=== PATIENT | male | born 1965 | race Caucasian/White ===

== ENCOUNTER 2021-09-16 11:32 | Inpatient (IN) | payer MEDICARE, MEDICAID ==
[~2021-09-16] VITALS: Ht 152.4 cm; Wt 53.4 kg
[~2021-09-16 11:32] MED LIST: DIVA-80 PO; FLUO-191 PO; HYDR25TA2 PO; LEVO-72 PO; METO25XL PO; OLAN10TA74 PO
[2021-09-16 12:56] LABS: COVID AG,FIA SOURCE NASOPHARYNGEAL
[2021-09-16 13:04] LABS: AMPHET/METH SCREEN,URINE POSITIVE (NEGATIVE); BARBITURATE SCREEN, URINE NEGATIVE (NEGATIVE); BENZODIAZEPINES SCREEN,URINE NEGATIVE (NEGATIVE); CANNABINOID SCREEN,URINE NEGATIVE (NEGATIVE); COCAINE SCREEN,URINE NEGATIVE (NEGATIVE); METHADONE SCREEN, URINE NEGATIVE (NEGATIVE); OPIATE SCREEN,URINE NEGATIVE (NEGATIVE)
[2021-09-16 13:09] LABS: PHENCYCLIDINE SCREEN,URINE NEGATIVE (NEGATIVE)
[2021-09-16] MEDS ORDERED: ZOLPIDEM TARTRATE 10 MG TABLET PO PRN (16:00)
[2021-09-16 18:57] VITALS: BP 136/80
[2021-09-17] MEDS ORDERED: OMEPRAZOLE 20 MG CAPSULE PO PRN (07:45)
[2021-09-17] MEDS ORDERED: CloNIDine HCL 0.1 MG TABLET PO PRN (07:45)
[2021-09-17] MEDS ORDERED: DOCUSATE SODIUM 100 MG CAPSULE PO PRN (07:45)
[2021-09-17] MEDS ORDERED: PETROLATUM,WHITE 28 GM JELLY TP PRN (07:45)
[2021-09-17] MEDS ORDERED: MAGNESIUM HYDROXIDE SUSPENSION 30 ML UDCUP PO PRN (07:45)
[2021-09-17] MEDS ORDERED: ACETAMINOPHEN 325 MG TABLET PO PRN (07:45)
[2021-09-17] MEDS ORDERED: BACITRACIN 28 GM OINTMENT TP PRN (07:45)
[2021-09-17] MEDS ORDERED: BENZOCAINE/MENTHOL LOZENGE PO PRN (07:45)
[2021-09-17] MEDS ORDERED: ALBUTEROL SULFATE HFA 90 MCG/PUFF 8 GM INHALER IH PRN (07:45)
[2021-09-17] MEDS ORDERED: LOPERAMIDE HCL 2 MG CAPSULE PO PRN (07:45)
[2021-09-17] MEDS ORDERED: ONDANSETRON HCL 4 MG TABLET PO PRN (07:45)
[2021-09-17] MEDS ORDERED: IBUPROFEN 600 MG TABLET PO PRN (07:45)
[2021-09-17] MEDS ORDERED: MAG HYDROX/AL HYDROX/SIMETH ES 30 ML SUSPENSION UDCUP PO PRN (07:45)
[2021-09-17] MEDS: HYDROCHLOROTHIAZIDE 25 MG TABLET PO SCH (08:00)
[2021-09-17] MEDS: METOPROLOL SUCCINATE 25 MG ER TABLET PO SCH (08:00)
[2021-09-17 08:14] VITALS: BP 127/68
[2021-09-17 16:16] VITALS: BP 148/90
[2021-09-17] MEDS ORDERED: INFLUENZA VIRUS VACCINE QVS 2021-22 (6MO+)/PF 60 MCG/0.5 ML SYRINGE IM. ONE (19:00)
[2021-09-17] MEDS: LORazepam 2 MG TABLET PO PRN (19:03)
[2021-09-17] MEDS: HALOPERIDOL 5 MG TABLET PO PRN (19:03)
[2021-09-17] MEDS: OLANZapine 7.5 MG TABLET PO SCH (20:08)
[2021-09-18 08:10] VITALS: BP 94/71
[2021-09-18] MEDS: METOPROLOL SUCCINATE 25 MG ER TABLET PO SCH (10:51)
[2021-09-18] MEDS: HYDROCHLOROTHIAZIDE 25 MG TABLET PO SCH (10:52)
[2021-09-18] MEDS: MULTIVITAMINS WITH MINERALS, THERAPEUTIC TABLET PO SCH (10:52)
[2021-09-18 16:13] VITALS: BP 129/84
[2021-09-18] MEDS: HALOPERIDOL 5 MG TABLET PO PRN (16:13)
[2021-09-18] MEDS: LORazepam 2 MG TABLET PO PRN (16:13)
[2021-09-18] MEDS: OLANZapine 7.5 MG TABLET PO SCH (20:15)
[2021-09-19 09:26] VITALS: BP 129/58
[2021-09-19] MEDS: HYDROCHLOROTHIAZIDE 25 MG TABLET PO SCH (09:33)
[2021-09-19] MEDS: METOPROLOL SUCCINATE 25 MG ER TABLET PO SCH (09:33)
[2021-09-19] MEDS: MULTIVITAMINS WITH MINERALS, THERAPEUTIC TABLET PO SCH (09:33)
[2021-09-19 16:35] VITALS: BP 102/66
[2021-09-19] MEDS: OLANZapine 7.5 MG TABLET PO SCH (20:12)
[2021-09-20 08:48] VITALS: BP 113/86
[2021-09-20] MEDS: METOPROLOL SUCCINATE 25 MG ER TABLET PO SCH (09:39)
[2021-09-20] MEDS: HYDROCHLOROTHIAZIDE 25 MG TABLET PO SCH (09:40)
[2021-09-20] MEDS: MULTIVITAMINS WITH MINERALS, THERAPEUTIC TABLET PO SCH (09:40)
[2021-09-20] MEDS: HALOPERIDOL 5 MG TABLET PO PRN (16:34)
[2021-09-20 17:00] VITALS: BP 112/69
[2021-09-20] MEDS: LORazepam 2 MG TABLET PO PRN (19:21)
[2021-09-20] MEDS: OLANZapine 7.5 MG TABLET PO SCH (21:11)
[2021-09-21] MEDS: METOPROLOL SUCCINATE 25 MG ER TABLET PO SCH (08:17)
[2021-09-21] MEDS: HYDROCHLOROTHIAZIDE 25 MG TABLET PO SCH (08:17)
[2021-09-21] MEDS: MULTIVITAMINS WITH MINERALS, THERAPEUTIC TABLET PO SCH (08:17)
[2021-09-21] MEDS: HALOPERIDOL 5 MG TABLET PO PRN ×3 (08:34→19:37)
[2021-09-21 08:37] VITALS: BP 119/80
[2021-09-21 16:07] VITALS: BP 131/78
[2021-09-21] MEDS: LORazepam 2 MG TABLET PO PRN (19:37)
[2021-09-21] MEDS: OLANZapine 7.5 MG TABLET PO SCH (20:35)
[2021-09-22] MEDS: METOPROLOL SUCCINATE 25 MG ER TABLET PO SCH (09:47)
[2021-09-22] MEDS: MULTIVITAMINS WITH MINERALS, THERAPEUTIC TABLET PO SCH (09:48)
[2021-09-22] MEDS: HYDROCHLOROTHIAZIDE 25 MG TABLET PO SCH (09:48)
[2021-09-22 14:09] LABS: COVID AG,FIA SOURCE NASOPHARYNGEAL
[2021-09-22 16:42] VITALS: BP 89/59
[2021-09-22 18:23] VITALS: BP 99/72
[2021-09-22] MEDS: OLANZapine 7.5 MG TABLET PO SCH (20:06)
[2021-09-23] MEDS: MULTIVITAMINS WITH MINERALS, THERAPEUTIC TABLET PO SCH (07:43)
[2021-09-23] MEDS: METOPROLOL SUCCINATE 25 MG ER TABLET PO SCH (07:44)
[2021-09-23] MEDS: HYDROCHLOROTHIAZIDE 25 MG TABLET PO SCH (07:44)
[2021-09-23 09:49] VITALS: BP 111/72
[2021-09-23] MEDS: HALOPERIDOL 5 MG TABLET PO PRN ×2 (13:56→17:59)
[2021-09-23] MEDS: LORazepam 2 MG TABLET PO PRN ×2 (13:56→17:59)
[2021-09-23 16:35] VITALS: BP 125/72
[2021-09-23] MEDS: OLANZapine 10 MG TABLET PO SCH (20:23)
[2021-09-24 08:00] VITALS: BP 93/66
[2021-09-24] MEDS: METOPROLOL SUCCINATE 25 MG ER TABLET PO SCH (09:36)
[2021-09-24] MEDS: HYDROCHLOROTHIAZIDE 25 MG TABLET PO SCH (09:36)
[2021-09-24] MEDS: MULTIVITAMINS WITH MINERALS, THERAPEUTIC TABLET PO SCH (09:36)
[2021-09-24 17:07] VITALS: BP 101/67
[2021-09-24] MEDS: OLANZapine 10 MG TABLET PO SCH (20:03)
[2021-09-25 08:00] VITALS: BP 132/85
[2021-09-25] MEDS: MULTIVITAMINS WITH IRON TABLET PO SCH (09:13)
[2021-09-25] MEDS: METOPROLOL SUCCINATE 25 MG ER TABLET PO SCH (09:13)
[2021-09-25] MEDS: HYDROCHLOROTHIAZIDE 25 MG TABLET PO SCH (09:13)
[2021-09-25] MEDS: HALOPERIDOL 5 MG TABLET PO PRN ×2 (09:17→19:50)
[2021-09-25 16:09] VITALS: BP 115/75
[2021-09-25] MEDS: LORazepam 2 MG TABLET PO PRN (19:50)
[2021-09-25] MEDS: OLANZapine 10 MG TABLET PO SCH (20:07)
[2021-09-26 08:30] VITALS: BP 101/69
[2021-09-26] MEDS: HYDROCHLOROTHIAZIDE 25 MG TABLET PO SCH (08:54)
[2021-09-26] MEDS: MULTIVITAMINS WITH IRON TABLET PO SCH (08:54)
[2021-09-26] MEDS: METOPROLOL SUCCINATE 25 MG ER TABLET PO SCH (08:54)
[2021-09-26 16:08] VITALS: BP 118/75
[2021-09-26] MEDS: LORazepam 2 MG TABLET PO PRN (17:57)
[2021-09-26] MEDS: HALOPERIDOL 5 MG TABLET PO PRN (17:57)
[2021-09-26] MEDS: OLANZapine 10 MG TABLET PO SCH (20:03)
[2021-09-27 08:06] VITALS: BP 96/68
[2021-09-27] MEDS: METOPROLOL SUCCINATE 25 MG ER TABLET PO SCH (09:00)
[2021-09-27] MEDS: HYDROCHLOROTHIAZIDE 25 MG TABLET PO SCH (09:00)
[2021-09-27] MEDS: MULTIVITAMINS WITH IRON TABLET PO SCH (11:36)
[2021-09-27 13:00] VITALS: BP 101/73
[2021-09-27] MEDS: LORazepam 2 MG TABLET PO PRN ×2 (13:06→20:15)
[2021-09-27] MEDS: HALOPERIDOL 5 MG TABLET PO PRN ×2 (13:06→20:15)
[2021-09-27 16:08] VITALS: BP 118/78
[2021-09-27] MEDS: OLANZapine 10 MG TABLET PO SCH (20:35)
[2021-09-28 08:15] VITALS: BP 126/100
[2021-09-28] MEDS: METOPROLOL SUCCINATE 25 MG ER TABLET PO SCH (10:10)
[2021-09-28] MEDS: MULTIVITAMINS WITH IRON TABLET PO SCH (10:11)
[2021-09-28] MEDS: HYDROCHLOROTHIAZIDE 25 MG TABLET PO SCH (10:11)
[2021-09-28] MEDS: HALOPERIDOL 5 MG TABLET PO PRN ×2 (14:38→18:38)
[2021-09-28 16:52] VITALS: BP 100/60
[2021-09-28] MEDS: LORazepam 2 MG TABLET PO PRN (18:39)
[2021-09-28] MEDS: OLANZapine 10 MG TABLET PO SCH (20:49)
[2021-09-29 08:00] VITALS: BP 100/71
[2021-09-29] MEDS: MULTIVITAMINS WITH IRON TABLET PO SCH (09:37)
[2021-09-29] MEDS: HYDROCHLOROTHIAZIDE 25 MG TABLET PO SCH (09:38)
[2021-09-29] MEDS: METOPROLOL SUCCINATE 25 MG ER TABLET PO SCH (09:38)
[2021-09-29 13:27] LABS: COVID AG,FIA SOURCE NASOPHARYNGEAL
[2021-09-29] MEDS: NICOTINE 21 MG/24 HOUR PATCH TD SCH (14:53)
[2021-09-29] MEDS: LORazepam 2 MG TABLET PO PRN (16:16)
[2021-09-29] MEDS: HALOPERIDOL 5 MG TABLET PO PRN (16:17)
[2021-09-29] MEDS: OLANZapine 10 MG TABLET PO SCH (20:42)
[2021-09-30] MEDS: HYDROCHLOROTHIAZIDE 25 MG TABLET PO SCH (08:17)
[2021-09-30] MEDS: NICOTINE 21 MG/24 HOUR PATCH TD SCH (08:17)
[2021-09-30] MEDS: METOPROLOL SUCCINATE 25 MG ER TABLET PO SCH (08:17)
[2021-09-30] MEDS: MULTIVITAMINS WITH IRON TABLET PO SCH (08:17)
[2021-09-30 08:30] VITALS: BP 103/81
[2021-09-30] MEDS: LORazepam 2 MG TABLET PO PRN ×2 (13:43→18:30)
[2021-09-30] MEDS: HALOPERIDOL 5 MG TABLET PO PRN ×2 (13:48→18:30)
[2021-09-30 16:48] VITALS: BP 123/76
[2021-09-30] MEDS: OLANZapine 10 MG TABLET PO SCH (20:04)
[2021-10-01 08:00] VITALS: BP 99/66
[2021-10-01] MEDS: MULTIVITAMINS WITH IRON TABLET PO SCH (08:13)
[2021-10-01] MEDS: NICOTINE 21 MG/24 HOUR PATCH TD SCH (08:13)
[2021-10-01] MEDS: METOPROLOL SUCCINATE 25 MG ER TABLET PO SCH (08:15)
[2021-10-01] MEDS: HYDROCHLOROTHIAZIDE 25 MG TABLET PO SCH (08:16)
[2021-10-01] MEDS: HALOPERIDOL 5 MG TABLET PO PRN (08:18)
[2021-10-01] MEDS: LORazepam 2 MG TABLET PO PRN (08:18)
[2021-10-01] MEDS ORDERED: OLAN10TA74 PO (12:08)
[2021-10-01] MEDS ORDERED: METO25XL PO (12:10)
[2021-10-01] MEDS ORDERED: HYDR25TA2 PO (12:11)
== END 2021-10-01 14:35 | disposition home or self-care (01) | DRG 885 ==
LOC: EMS 11:36 → 3EC 18:08
PROVIDERS: ADMIT Psychiatry & Neurology Psychiatry; ATTEND Psychiatry & Neurology Psychiatry
DX: F25.9 Schizoaffective disorder, unspecified (principal); R45.851 Suicidal ideations; D64.9 Anemia, unspecified; Z20.822 Contact with and (suspected) exposure to COVID-19; F15.10 Other stimulant abuse, uncomplicated; F32.A Depression, unspecified; F41.9 Anxiety disorder, unspecified; G47.00 Insomnia, unspecified; I10 Essential (primary) hypertension; K59.00 Constipation, unspecified; F17.210 Nicotine dependence, cigarettes, uncomplicated; Z28.21 Immunization not carried out because of patient refusal; Z88.8 Allergy status to other drugs, medicaments and biological substances; Z79.899 Other long term (current) drug therapy; Z71.51 Drug abuse counseling and surveillance of drug abuser; Z71.6 Tobacco abuse counseling
CPT/HCPCS: 99285

== ENCOUNTER 2022-02-11 16:25 | Inpatient (IN) | payer MEDICARE, MEDICAID ==
[~2022-02-11] VITALS: Ht 152.4 cm; Wt 51.7 kg
[~2022-02-11 16:25] MED LIST changes: -DIVA-80 PO; -FLUO-191 PO; -LEVO-72 PO
[2022-02-11] MEDS: ZOLPIDEM TARTRATE 10 MG TABLET PO PRN (21:35)
[2022-02-12 06:26] VITALS: BP 112/83
[2022-02-12 08:17] VITALS: BP 114/77
[2022-02-12] MEDS ORDERED: MAGNESIUM HYDROXIDE SUSPENSION 30 ML UDCUP PO PRN (13:30)
[2022-02-12] MEDS ORDERED: ONDANSETRON HCL 4 MG TABLET PO PRN (13:30)
[2022-02-12] MEDS ORDERED: CloNIDine HCL 0.1 MG TABLET PO PRN (13:30)
[2022-02-12] MEDS ORDERED: PETROLATUM,WHITE 28 GM JELLY TP PRN (13:30)
[2022-02-12] MEDS ORDERED: DOCUSATE SODIUM 100 MG CAPSULE PO PRN (13:30)
[2022-02-12] MEDS ORDERED: LOPERAMIDE HCL 2 MG CAPSULE PO PRN (13:30)
[2022-02-12] MEDS ORDERED: GuaiFENesin/D-METHORPHAN [SUGAR-FREE] 200-20MG/10 ML SYRUP UDCUP PO PRN (13:30)
[2022-02-12] MEDS ORDERED: MAG HYDROX/AL HYDROX/SIMETH ES 30 ML SUSPENSION UDCUP PO PRN (13:30)
[2022-02-12] MEDS ORDERED: ALBUTEROL SULFATE HFA 90 MCG/PUFF 8 GM INHALER IH PRN (13:30)
[2022-02-12 16:09] VITALS: BP 109/68
[2022-02-12] MEDS: HALOPERIDOL 5 MG TABLET PO PRN (18:24)
[2022-02-12] MEDS: OLANZapine 10 MG TABLET PO SCH (20:28)
[2022-02-13 01:19] VITALS: BP 102/73
[2022-02-13] MEDS: HYDROCHLOROTHIAZIDE 25 MG TABLET PO SCH (08:21)
[2022-02-13] MEDS: METOPROLOL SUCCINATE 25 MG ER TABLET PO SCH (08:21)
[2022-02-13 08:33] VITALS: BP 106/61
[2022-02-13] MEDS: HALOPERIDOL 5 MG TABLET PO PRN (15:47)
[2022-02-13 16:02] VITALS: BP 116/89
[2022-02-13] MEDS: OLANZapine 10 MG TABLET PO SCH (20:28)
[2022-02-14 01:23] VITALS: BP 100/61
[2022-02-14 07:23] LABS: APPEARANCE,URINE CLEAR (CLEAR); BILIRUBIN,URINE NEGATIVE (NEGATIVE); GLUCOSE, URINE (UA) NEGATIVE (NEGATIVE); KETONES,URINE NEGATIVE (NEGATIVE); LEUKOCYTE ESTERASE ,URINE NEGATIVE (NEGATIVE); NITRATE,URINE NEGATIVE (NEGATIVE); OCCULT BLOOD,URINE NEGATIVE (NEGATIVE); PROTEIN,URINE NEGATIVE (NEGATIVE); SPECIFIC GRAVITIY, URINE 1.014 (1.003-1.030); UROBILINOGEN,URINE <=1.0 mg/dL (<=1.0)
[2022-02-14 07:31] LABS: AMPHET/METH SCREEN,URINE NEGATIVE (NEGATIVE); BARBITURATE SCREEN, URINE NEGATIVE (NEGATIVE); BENZODIAZEPINES SCREEN,URINE NEGATIVE (NEGATIVE); CANNABINOID SCREEN,URINE NEGATIVE (NEGATIVE); COCAINE SCREEN,URINE NEGATIVE (NEGATIVE); METHADONE SCREEN, URINE NEGATIVE (NEGATIVE); OPIATE SCREEN,URINE NEGATIVE (NEGATIVE); PHENCYCLIDINE SCREEN,URINE NEGATIVE (NEGATIVE)
[2022-02-14 08:26] VITALS: BP 100/83
[2022-02-14] MEDS: HYDROCHLOROTHIAZIDE 25 MG TABLET PO SCH (08:30)
[2022-02-14] MEDS: METOPROLOL SUCCINATE 25 MG ER TABLET PO SCH (08:31)
[2022-02-14 16:06] VITALS: BP 106/82
[2022-02-14] MEDS: OLANZapine 10 MG TABLET PO SCH (20:05)
[2022-02-15 00:35] VITALS: BP 102/71
[2022-02-15 08:00] VITALS: BP 110/74
[2022-02-15] MEDS: METOPROLOL SUCCINATE 25 MG ER TABLET PO SCH (08:06)
[2022-02-15] MEDS: HYDROCHLOROTHIAZIDE 25 MG TABLET PO SCH (08:06)
[2022-02-15 16:47] VITALS: BP 104/86
[2022-02-15] MEDS: OLANZapine 10 MG TABLET PO SCH (20:16)
[2022-02-16 00:03] VITALS: BP 100/64
[2022-02-16] MEDS: METOPROLOL SUCCINATE 25 MG ER TABLET PO SCH (08:03)
[2022-02-16] MEDS: HYDROCHLOROTHIAZIDE 25 MG TABLET PO SCH (08:03)
[2022-02-16 08:04] VITALS: BP 104/67
[2022-02-16 16:06] VITALS: BP 94/70
[2022-02-16] MEDS: OLANZapine 10 MG TABLET PO SCH (20:27)
[2022-02-16] MEDS: ZOLPIDEM TARTRATE 10 MG TABLET PO PRN (21:56)
[2022-02-17 01:27] VITALS: BP 103/66
[2022-02-17 08:03] VITALS: BP 102/63
[2022-02-17] MEDS: HYDROCHLOROTHIAZIDE 25 MG TABLET PO SCH (08:08)
[2022-02-17] MEDS: METOPROLOL SUCCINATE 25 MG ER TABLET PO SCH (08:08)
[2022-02-17 16:05] VITALS: BP 111/78
[2022-02-17] MEDS: OLANZapine 10 MG TABLET PO SCH (20:49)
[2022-02-17] MEDS: ZOLPIDEM TARTRATE 10 MG TABLET PO PRN (21:48)
[2022-02-18 00:24] VITALS: BP 108/65
[2022-02-18] MEDS: HYDROCHLOROTHIAZIDE 25 MG TABLET PO SCH (08:31)
[2022-02-18] MEDS: METOPROLOL SUCCINATE 25 MG ER TABLET PO SCH (08:32)
[2022-02-18] MEDS: MULTIVITAMINS WITH IRON TABLET PO SCH (08:32)
[2022-02-18] MEDS: THIAMINE 100 MG TABLET PO SCH (08:32)
[2022-02-18 08:49] VITALS: BP 109/65
[2022-02-18 11:26] LABS: GLUCOMETER DEV NAME(LOC) POC.BV
[2022-02-18 16:01] VITALS: BP 99/61
[2022-02-18] MEDS: LORazepam 2 MG TABLET PO PRN (16:20)
[2022-02-18] MEDS: OLANZapine 7.5 MG TABLET PO SCH (20:27)
[2022-02-19 08:00] VITALS: BP 103/75
[2022-02-19 09:20] VITALS: BP 110/68
[2022-02-19] MEDS: THIAMINE 100 MG TABLET PO SCH (09:24)
[2022-02-19] MEDS: MULTIVITAMINS WITH IRON TABLET PO SCH (09:24)
[2022-02-19] MEDS: METOPROLOL SUCCINATE 25 MG ER TABLET PO SCH (09:24)
[2022-02-19] MEDS: HYDROCHLOROTHIAZIDE 25 MG TABLET PO SCH (09:24)
[2022-02-19 16:11] VITALS: BP 96/68
[2022-02-19] MEDS: OLANZapine 7.5 MG TABLET PO SCH (20:40)
[2022-02-20 01:00] VITALS: BP 102/66
[2022-02-20] MEDS: MULTIVITAMINS WITH IRON TABLET PO SCH (08:18)
[2022-02-20] MEDS: METOPROLOL SUCCINATE 25 MG ER TABLET PO SCH (08:18)
[2022-02-20] MEDS: THIAMINE 100 MG TABLET PO SCH (08:18)
[2022-02-20] MEDS: HYDROCHLOROTHIAZIDE 25 MG TABLET PO SCH (08:18)
[2022-02-20 08:22] VITALS: BP 104/78
[2022-02-20 16:07] VITALS: BP 102/65
[2022-02-20] MEDS: OLANZapine 7.5 MG TABLET PO SCH (20:14)
[2022-02-20] MEDS: ZOLPIDEM TARTRATE 10 MG TABLET PO PRN (20:16)
[2022-02-21 08:30] VITALS: BP 95/60
[2022-02-21] MEDS: THIAMINE 100 MG TABLET PO SCH (08:52)
[2022-02-21] MEDS: MULTIVITAMINS WITH IRON TABLET PO SCH (08:52)
[2022-02-21] MEDS: METOPROLOL SUCCINATE 25 MG ER TABLET PO SCH (09:00)
[2022-02-21] MEDS: HYDROCHLOROTHIAZIDE 25 MG TABLET PO SCH (09:00)
[2022-02-21 16:12] VITALS: BP 103/62
[2022-02-21] MEDS: BACITRACIN 28 GM OINTMENT TP SCH (17:19)
[2022-02-21] MEDS: OLANZapine 10 MG TABLET PO SCH (20:21)
[2022-02-22 00:30] VITALS: BP 108/65
[2022-02-22 08:05] VITALS: BP 100/67
[2022-02-22] MEDS: HYDROCHLOROTHIAZIDE 25 MG TABLET PO SCH (08:35)
[2022-02-22] MEDS: METOPROLOL SUCCINATE 25 MG ER TABLET PO SCH (08:35)
[2022-02-22] MEDS: MULTIVITAMINS WITH IRON TABLET PO SCH (08:35)
[2022-02-22] MEDS: THIAMINE 100 MG TABLET PO SCH (08:35)
[2022-02-22] MEDS: BACITRACIN 28 GM OINTMENT TP SCH ×2 (09:00→16:44)
[2022-02-22 16:13] VITALS: BP 105/82
[2022-02-22] MEDS: NICOTINE 14 MG/24 HOUR PATCH TD PRN (19:47)
[2022-02-22] MEDS: OLANZapine 10 MG TABLET PO SCH (20:27)
[2022-02-23 00:36] VITALS: BP 108/68
[2022-02-23 08:49] VITALS: BP 101/61
[2022-02-23] MEDS: BACITRACIN 28 GM OINTMENT TP SCH ×2 (09:08→16:44)
[2022-02-23] MEDS: MULTIVITAMINS WITH IRON TABLET PO SCH (09:11)
[2022-02-23] MEDS: THIAMINE 100 MG TABLET PO SCH (09:11)
[2022-02-23] MEDS: METOPROLOL SUCCINATE 25 MG ER TABLET PO SCH (09:11)
[2022-02-23] MEDS: HYDROCHLOROTHIAZIDE 25 MG TABLET PO SCH (09:11)
[2022-02-23 16:35] VITALS: BP 126/72
[2022-02-23] MEDS: LORazepam 2 MG TABLET PO PRN (18:10)
[2022-02-23] MEDS: OLANZapine 10 MG TABLET PO SCH (20:32)
[2022-02-24 00:43] VITALS: BP 119/73
[2022-02-24 08:31] VITALS: BP 110/68
[2022-02-24] MEDS: BACITRACIN 28 GM OINTMENT TP SCH ×2 (09:05→16:14)
[2022-02-24] MEDS: HYDROCHLOROTHIAZIDE 25 MG TABLET PO SCH (09:05)
[2022-02-24] MEDS: MULTIVITAMINS WITH IRON TABLET PO SCH (09:05)
[2022-02-24] MEDS: METOPROLOL SUCCINATE 25 MG ER TABLET PO SCH (09:05)
[2022-02-24] MEDS: THIAMINE 100 MG TABLET PO SCH (09:05)
[2022-02-24 16:09] VITALS: BP 109/75
[2022-02-24] MEDS: LORazepam 2 MG TABLET PO PRN (19:10)
[2022-02-24] MEDS: OLANZapine 10 MG TABLET PO SCH (20:17)
[2022-02-25 00:57] VITALS: BP 112/72
[2022-02-25 09:06] LABS: GLUCOMETER DEV NAME(LOC) POC.BV
[2022-02-25 09:48] VITALS: BP 108/68
[2022-02-25] MEDS: METOPROLOL SUCCINATE 25 MG ER TABLET PO SCH (10:19)
[2022-02-25] MEDS: HYDROCHLOROTHIAZIDE 25 MG TABLET PO SCH (10:19)
[2022-02-25] MEDS: BACITRACIN 28 GM OINTMENT TP SCH ×2 (10:19→16:21)
[2022-02-25] MEDS: MULTIVITAMINS WITH IRON TABLET PO SCH (10:19)
[2022-02-25] MEDS: THIAMINE 100 MG TABLET PO SCH (10:19)
[2022-02-25 16:26] VITALS: BP 98/67
[2022-02-25] MEDS: NICOTINE 14 MG/24 HOUR PATCH TD PRN (17:49)
[2022-02-25] MEDS: OLANZapine 10 MG TABLET PO SCH (20:26)
[2022-02-25] MEDS: LORazepam 2 MG TABLET PO PRN (22:40)
[2022-02-26 02:04] VITALS: BP 101/65
[2022-02-26] MEDS: THIAMINE 100 MG TABLET PO SCH (08:40)
[2022-02-26] MEDS: MULTIVITAMINS WITH IRON TABLET PO SCH (08:40)
[2022-02-26] MEDS: BACITRACIN 28 GM OINTMENT TP SCH ×2 (08:43→16:35)
[2022-02-26] MEDS: HYDROCHLOROTHIAZIDE 25 MG TABLET PO SCH (08:43)
[2022-02-26] MEDS: METOPROLOL SUCCINATE 25 MG ER TABLET PO SCH (08:43)
[2022-02-26 09:19] VITALS: BP 109/60
[2022-02-26 16:22] VITALS: BP 106/70
[2022-02-26] MEDS: OLANZapine 10 MG TABLET PO SCH (20:35)
[2022-02-26] MEDS: ZOLPIDEM TARTRATE 10 MG TABLET PO PRN (20:35)
[2022-02-27 01:28] VITALS: BP 103/62
[2022-02-27 08:22] VITALS: BP 108/64
[2022-02-27] MEDS: THIAMINE 100 MG TABLET PO SCH (08:24)
[2022-02-27] MEDS: MULTIVITAMINS WITH IRON TABLET PO SCH (08:24)
[2022-02-27] MEDS: METOPROLOL SUCCINATE 25 MG ER TABLET PO SCH (08:24)
[2022-02-27] MEDS: HYDROCHLOROTHIAZIDE 25 MG TABLET PO SCH (08:24)
[2022-02-27] MEDS: BACITRACIN 28 GM OINTMENT TP SCH ×2 (08:29→16:57)
[2022-02-27 16:17] VITALS: BP 106/68
[2022-02-27] MEDS: OLANZapine 10 MG TABLET PO SCH (20:06)
[2022-02-27] MEDS: NICOTINE 14 MG/24 HOUR PATCH TD PRN (20:09)
[2022-02-28 06:02] VITALS: BP 109/67
[2022-02-28] MEDS: THIAMINE 100 MG TABLET PO SCH (08:07)
[2022-02-28] MEDS: MULTIVITAMINS WITH IRON TABLET PO SCH (08:07)
[2022-02-28] MEDS: METOPROLOL SUCCINATE 25 MG ER TABLET PO SCH (08:11)
[2022-02-28] MEDS: HYDROCHLOROTHIAZIDE 25 MG TABLET PO SCH (08:11)
[2022-02-28] MEDS: BACITRACIN 28 GM OINTMENT TP SCH ×2 (08:12→16:41)
[2022-02-28 08:14] VITALS: BP 101/63
[2022-02-28] MEDS: HALOPERIDOL 5 MG TABLET PO PRN (08:20)
[2022-02-28 16:18] VITALS: BP 99/73
[2022-02-28] MEDS: NICOTINE 14 MG/24 HOUR PATCH TD PRN (16:41)
[2022-02-28] MEDS: OLANZapine 10 MG TABLET PO SCH (20:03)
[2022-02-28] MEDS: LORazepam 2 MG TABLET PO PRN (20:03)
[2022-03-01 06:22] VITALS: BP 104/60
[2022-03-01] MEDS: THIAMINE 100 MG TABLET PO SCH (09:03)
[2022-03-01] MEDS: METOPROLOL SUCCINATE 25 MG ER TABLET PO SCH (09:03)
[2022-03-01] MEDS: HYDROCHLOROTHIAZIDE 25 MG TABLET PO SCH (09:03)
[2022-03-01] MEDS: MULTIVITAMINS WITH IRON TABLET PO SCH (09:03)
[2022-03-01] MEDS: BACITRACIN 28 GM OINTMENT TP SCH ×2 (09:04→16:15)
[2022-03-01 09:08] VITALS: BP 101/73
[2022-03-01 16:43] VITALS: BP 108/67
[2022-03-01] MEDS: OLANZapine 10 MG TABLET PO SCH (20:11)
[2022-03-02 01:45] VITALS: BP 100/71
[2022-03-02] MEDS: THIAMINE 100 MG TABLET PO SCH (09:35)
[2022-03-02] MEDS: MULTIVITAMINS WITH IRON TABLET PO SCH (09:35)
[2022-03-02] MEDS: METOPROLOL SUCCINATE 25 MG ER TABLET PO SCH (09:36)
[2022-03-02] MEDS: HYDROCHLOROTHIAZIDE 25 MG TABLET PO SCH (09:36)
[2022-03-02] MEDS: BACITRACIN 28 GM OINTMENT TP SCH ×2 (09:36→16:20)
[2022-03-02 10:33] VITALS: BP 13/78
[2022-03-02 18:00] VITALS: BP 106/81
[2022-03-02] MEDS: OLANZapine 10 MG TABLET PO SCH (20:18)
[2022-03-02 20:22] VITALS: BP 110/76
[2022-03-02] MEDS: IBUPROFEN 400 MG TABLET PO PRN (20:22)
[2022-03-02] MEDS: NICOTINE 14 MG/24 HOUR PATCH TD PRN (20:26)
[2022-03-03 06:21] VITALS: BP 112/78
[2022-03-03 08:52] VITALS: BP 111/78
[2022-03-03] MEDS: THIAMINE 100 MG TABLET PO SCH (08:58)
[2022-03-03] MEDS: MULTIVITAMINS WITH IRON TABLET PO SCH (08:58)
[2022-03-03] MEDS: HYDROCHLOROTHIAZIDE 25 MG TABLET PO SCH (08:58)
[2022-03-03] MEDS: METOPROLOL SUCCINATE 25 MG ER TABLET PO SCH (08:58)
[2022-03-03] MEDS: BACITRACIN 28 GM OINTMENT TP SCH ×2 (08:59→17:26)
[2022-03-03] MEDS: LORazepam 2 MG TABLET PO PRN (12:53)
[2022-03-03] MEDS: HALOPERIDOL 5 MG TABLET PO PRN (12:53)
[2022-03-03] MEDS: IBUPROFEN 400 MG TABLET PO PRN (14:38)
[2022-03-03 16:26] VITALS: BP 99/72
[2022-03-03] MEDS: DIVALPROEX SODIUM 500 MG DR TABLET PO SCH (20:43)
[2022-03-03] MEDS: OLANZapine 10 MG TABLET PO SCH (20:44)
[2022-03-04 01:40] VITALS: BP 103/72
[2022-03-04] MEDS: HYDROCHLOROTHIAZIDE 25 MG TABLET PO SCH (08:33)
[2022-03-04] MEDS: MULTIVITAMINS WITH IRON TABLET PO SCH (08:33)
[2022-03-04] MEDS: THIAMINE 100 MG TABLET PO SCH (08:33)
[2022-03-04] MEDS: DIVALPROEX SODIUM 500 MG DR TABLET PO SCH ×2 (08:33→20:30)
[2022-03-04] MEDS: METOPROLOL SUCCINATE 25 MG ER TABLET PO SCH (08:33)
[2022-03-04] MEDS: BACITRACIN 28 GM OINTMENT TP SCH ×2 (08:35→16:54)
[2022-03-04 08:46] VITALS: BP 109/63
[2022-03-04 09:46] LABS: GLUCOMETER DEV NAME(LOC) POC.BV
[2022-03-04 16:46] VITALS: BP 106/60
[2022-03-04] MEDS: OLANZapine 10 MG TABLET PO SCH (20:30)
[2022-03-05 06:12] VITALS: BP 117/71
[2022-03-05 08:25] VITALS: BP 102/73
[2022-03-05] MEDS: HYDROCHLOROTHIAZIDE 25 MG TABLET PO SCH (08:51)
[2022-03-05] MEDS: THIAMINE 100 MG TABLET PO SCH (08:51)
[2022-03-05] MEDS: MULTIVITAMINS WITH IRON TABLET PO SCH (08:51)
[2022-03-05] MEDS: BACITRACIN 28 GM OINTMENT TP SCH ×2 (08:51→17:06)
[2022-03-05] MEDS: DIVALPROEX SODIUM 500 MG DR TABLET PO SCH ×2 (08:51→20:14)
[2022-03-05] MEDS: METOPROLOL SUCCINATE 25 MG ER TABLET PO SCH (08:51)
[2022-03-05 16:33] VITALS: BP 112/70
[2022-03-05] MEDS: OLANZapine 10 MG TABLET PO SCH (20:14)
[2022-03-06 06:20] VITALS: BP 89/68
[2022-03-06] MEDS: THIAMINE 100 MG TABLET PO SCH (08:22)
[2022-03-06] MEDS: METOPROLOL SUCCINATE 25 MG ER TABLET PO SCH (08:22)
[2022-03-06] MEDS: HYDROCHLOROTHIAZIDE 25 MG TABLET PO SCH (08:22)
[2022-03-06] MEDS: DIVALPROEX SODIUM 500 MG DR TABLET PO SCH ×2 (08:22→20:17)
[2022-03-06] MEDS: BACITRACIN 28 GM OINTMENT TP SCH ×2 (08:22→17:07)
[2022-03-06] MEDS: MULTIVITAMINS WITH IRON TABLET PO SCH (08:22)
[2022-03-06 08:29] VITALS: BP 110/61
[2022-03-06 16:10] VITALS: BP 111/66
[2022-03-06] MEDS: OLANZapine 10 MG TABLET PO SCH (20:17)
[2022-03-07 00:59] VITALS: BP 108/65
[2022-03-07] MEDS: DIVALPROEX SODIUM 500 MG DR TABLET PO SCH ×2 (08:53→20:11)
[2022-03-07] MEDS: THIAMINE 100 MG TABLET PO SCH (08:53)
[2022-03-07] MEDS: MULTIVITAMINS WITH IRON TABLET PO SCH (08:53)
[2022-03-07] MEDS: BACITRACIN 28 GM OINTMENT TP SCH ×2 (08:54→16:46)
[2022-03-07] MEDS: HYDROCHLOROTHIAZIDE 25 MG TABLET PO SCH (08:58)
[2022-03-07] MEDS: METOPROLOL SUCCINATE 25 MG ER TABLET PO SCH (08:58)
[2022-03-07 10:37] VITALS: BP 100/65
[2022-03-07 16:22] VITALS: BP 100/70
[2022-03-07] MEDS: OLANZapine 10 MG TABLET PO SCH (20:11)
[2022-03-07] MEDS: ZOLPIDEM TARTRATE 10 MG TABLET PO PRN (22:18)
[2022-03-08 01:08] VITALS: BP 102/62
[2022-03-08 08:20] VITALS: BP 103/78
[2022-03-08] MEDS: DIVALPROEX SODIUM 500 MG DR TABLET PO SCH ×2 (09:27→20:39)
[2022-03-08] MEDS: THIAMINE 100 MG TABLET PO SCH (09:27)
[2022-03-08] MEDS: MULTIVITAMINS WITH IRON TABLET PO SCH (09:27)
[2022-03-08] MEDS: HYDROCHLOROTHIAZIDE 25 MG TABLET PO SCH (09:27)
[2022-03-08] MEDS: METOPROLOL SUCCINATE 25 MG ER TABLET PO SCH (09:27)
[2022-03-08] MEDS: BACITRACIN 28 GM OINTMENT TP SCH ×2 (09:28→16:32)
[2022-03-08] MEDS: LORazepam 2 MG TABLET PO PRN (14:32)
[2022-03-08 16:33] VITALS: BP 99/72
[2022-03-08] MEDS: OLANZapine 10 MG TABLET PO SCH (20:39)
[2022-03-09 00:35] VITALS: BP 102/63
[2022-03-09] MEDS: MULTIVITAMINS WITH IRON TABLET PO SCH (08:28)
[2022-03-09] MEDS: DIVALPROEX SODIUM 500 MG DR TABLET PO SCH ×2 (08:28→20:30)
[2022-03-09] MEDS: HYDROCHLOROTHIAZIDE 25 MG TABLET PO SCH (08:28)
[2022-03-09] MEDS: METOPROLOL SUCCINATE 25 MG ER TABLET PO SCH (08:28)
[2022-03-09] MEDS: THIAMINE 100 MG TABLET PO SCH (08:29)
[2022-03-09] MEDS: BACITRACIN 28 GM OINTMENT TP SCH ×2 (08:29→16:34)
[2022-03-09 08:43] VITALS: BP 107/68
[2022-03-09 16:37] VITALS: BP 102/70
[2022-03-09] MEDS: OLANZapine 10 MG TABLET PO SCH (20:30)
[2022-03-10 00:51] VITALS: BP 103/68
[2022-03-10 08:18] VITALS: BP 103/70
[2022-03-10] MEDS: DIVALPROEX SODIUM 500 MG DR TABLET PO SCH ×2 (09:00→20:34)
[2022-03-10] MEDS: MULTIVITAMINS WITH IRON TABLET PO SCH (09:00)
[2022-03-10] MEDS: METOPROLOL SUCCINATE 25 MG ER TABLET PO SCH (09:00)
[2022-03-10] MEDS: HYDROCHLOROTHIAZIDE 25 MG TABLET PO SCH (09:00)
[2022-03-10] MEDS: THIAMINE 100 MG TABLET PO SCH (09:00)
[2022-03-10] MEDS: BACITRACIN 28 GM OINTMENT TP SCH ×2 (09:01→16:30)
[2022-03-10 16:12] VITALS: BP 113/75
[2022-03-10] MEDS: LORazepam 2 MG TABLET PO PRN (18:10)
[2022-03-10] MEDS: NICOTINE 14 MG/24 HOUR PATCH TD PRN (18:46)
[2022-03-10] MEDS: OLANZapine 10 MG TABLET PO SCH (20:34)
[2022-03-11 01:05] VITALS: BP 109/71
[2022-03-11 08:13] VITALS: BP 109/73
[2022-03-11] MEDS: DIVALPROEX SODIUM 500 MG DR TABLET PO SCH (08:58)
[2022-03-11] MEDS: METOPROLOL SUCCINATE 25 MG ER TABLET PO SCH (08:58)
[2022-03-11] MEDS: MULTIVITAMINS WITH IRON TABLET PO SCH (08:58)
[2022-03-11] MEDS: HYDROCHLOROTHIAZIDE 25 MG TABLET PO SCH (08:58)
[2022-03-11] MEDS: THIAMINE 100 MG TABLET PO SCH (08:58)
[2022-03-11] MEDS: BACITRACIN 28 GM OINTMENT TP SCH (08:59)
[2022-03-11] MEDS ORDERED: DIVA-112 PO ×2 (13:04→15:42)
[2022-03-11] MEDS ORDERED: OLAN10 PO (15:42)
[2022-03-11 16:21] LABS: GLUCOMETER DEV NAME(LOC) POC.BV
[2022-03-11 16:32] LABS: GLUCOMETER DEV NAME(LOC) POC.BV
== END 2022-03-11 15:10 | disposition home or self-care (01) | DRG 885 ==
LOC: B2S 21:14
PROVIDERS: ADMIT Psychiatry & Neurology Psychiatry; ATTEND Psychiatry & Neurology Psychiatry
DX: F25.0 Schizoaffective disorder, bipolar type (principal); E44.0 Moderate protein-calorie malnutrition; R45.851 Suicidal ideations; Z20.822 Contact with and (suspected) exposure to COVID-19; D64.9 Anemia, unspecified; F15.10 Other stimulant abuse, uncomplicated; Z59.00 Homelessness unspecified; Z88.8 Allergy status to other drugs, medicaments and biological substances; Z88.5 Allergy status to narcotic agent
CPT/HCPCS: 80307; 81003; 87081